=== PATIENT | male | born 1945 | race Caucasian/White ===

== ENCOUNTER 2021-03-01 04:56 | Day surgery (SDC) | payer OTHER, MEDICARE ==
[2021-02-27 16:34] VITALS: BMI 32.4
[2021-03-01 10:45] VITALS: TEMP 97.3
[2021-03-01 11:26] VITALS: PULSE 60
[2021-03-01 11:37] VITALS: BP 139/62
== END 2021-03-01 11:54 | disposition home or self-care (01) ==
LOC: JASU-ENDO 04:56
PROVIDERS: ATTEND Internal Medicine Gastroenterology
PROC: 0DB48ZX Excision of Esophagogastric Junction, Via Natural or Artificial Opening Endoscopic, Diagnostic (ICD-10-PCS; 2021-03-01)
PROC: 0DB68ZX Excision of Stomach, Via Natural or Artificial Opening Endoscopic, Diagnostic (ICD-10-PCS; 2021-03-01)
PROC: 0DBK8ZX Excision of Ascending Colon, Via Natural or Artificial Opening Endoscopic, Diagnostic (ICD-10-PCS; principal; 2021-03-01 10:00)
DX: Z12.11 Encounter for screening for malignant neoplasm of colon (principal); Z86.010 Personal history of colon polyps; D12.2 Benign neoplasm of ascending colon; K21.00 Gastro-esophageal reflux disease with esophagitis, without bleeding; K44.9 Diaphragmatic hernia without obstruction or gangrene; K29.70 Gastritis, unspecified, without bleeding
CPT/HCPCS: 88305-TC; 88342-TC